=== PATIENT | female | born 1990 | race Caucasian/White ===

== ENCOUNTER 2019-07-16 15:53 | Emergency (ER) | payer SELFPAY ==
[2019-07-16 15:54] VITALS: BP 149/78; PULSE 77; PULSE 95; RESP 17; TEMP 36.3; O2SAT 97; BMI 22.7
--- NOTE | 2019-07-16 16:13 | ED.DEP ---
ED Disposition - Plan for ED Patient: Instructions: Dental Pain Prescriptions: Naproxen [Naprosyn] 500 mg PO BID PRN #20 tablet Penicillin V Potassium 500 mg PO 4X/DAY #40 tablet Referrals: Care Physician,No Primary [Primary Care Provider] -
--- NOTE | 2019-07-16 16:16 | ED.VISSUMM ---
- ER Visit Summary Date of Service: 07/16/19 Chief Complaint: Toothache History of Present Illness: The patient is a 28 F presenting with left lower toothache. This has been ongoing for the past 2 days. She has tried ibuprofen, Motrin, Orajel at home. She has also tried her niece's amoxicillin. She does not currently have a dentist. She has had left lower jaw swelling. Denies other complaints. Physical Examination: Vitals are stable. Patient is afebrile. Alert no acute distress. HEENT exam widespread dental decay, left lower gum tenderness with no fluctuance. No sublingual edema Neck is supple. Lungs are clear and equal bilaterally. Heart is regular rate and rhythm. Extremities are unremarkable. Skin is warm and dry. Remainder of exam is unremarkable. Emergency Department Course and Treatment: She was given [place] x1. She was given prescription for Naprosyn and penicillin. Advised to follow-up with a dentist. She is given a dental referral list. Advised return to ED for worsening complaints. Disposition: Discharge home Impression: Odontalgia This note was generated with [employer] dictation software. It may contain incorrect words, spelling, and punctuation that were not noted in review of the chart prior to signing ED Disposition - Plan for ED Patient: Disposition: Home or Assisted Living Instructions: Dental Pain Prescriptions: Naproxen [Naprosyn] 500 mg PO BID PRN #20 tab Prescription Printed Penicillin V Potassium 500 mg PO 4X/DAY #40 tab Prescription Printed Referrals: Care Physician,No Primary [Primary Care Provider] -
[2019-07-16] MEDS: Penicillin Vk 250 MG Tablet 500 MG PO (16:23)
== END 2019-07-16 16:32 | disposition home or self-care (01) ==
LOC: ED 16:26
PROVIDERS: Emergency Provider Emergency Medicine
DX: K02.9 Dental caries, unspecified (principal); Z72.0 Tobacco use
CPT/HCPCS: 99283

== ENCOUNTER 2019-09-22 07:42 | Emergency (ER) | payer MEDICAID, SELFPAY ==
[2019-09-22 07:45] VITALS: BP 129/65; PULSE 117; RESP 16; TEMP 36.8; O2SAT 100; BMI 22.3
--- NOTE | 2019-09-22 08:10 | ED.DCSUM_ITS ---
- ER Visit Summary Date of Service: 09/22/19 Chief Complaint: Sore throat with nausea, vomiting and diarrhea. Subjective fever. History of Present Illness: The patient is a 29 F seen in past medical history. Patient states she is had 4 days of nausea, vomiting and diarrhea. She is also had a sore throat. But is able to swallow. Not much of a cough. Subjective fever but not documented. No dysuria. No abdominal pain. Physical Examination: Young female no acute distress vital signs are stable afebrile. H EENT exam TMs are normal. Face is unremarkable. Posterior pharynx minimal erythema. No exudate. Tonsils not specifically enlarged. She is not drooling and able to swallow. There is no stridor. Neck nontender. Trachea midline. No lymphadenopathy. No meningismus. Lungs clear to auscultation bilaterally. Heart tachycardic rate about 110 no murmur. Abdomen is soft and nontender. Normal bowel sounds. No peritoneal signs. Both right upper and right lower quadrants are unremarkable. No obstruction. No distention. Patient is moving all 4 extremities. No edema. Back nontender. Neurologically she is awake alert with no focal motor deficits. Test Results: None Emergency Department Course and Treatment: Patient be treated with p.o. Zofran for nausea. P.o. fluid challenge. Clinically this does not appear to be strep throat. She has no exudate. Tonsils not enlarged. There is only minimal erythema. And she has no lymphadenopathy. She will be treated as a viral syndrome. Treatment Plan: Zofran for nausea. Plenty of fluids and rest. Follow-up as needed. Disposition: Discharge Impression: Acute viral syndrome This note was generated with [employer] dictation software. It may contain incorrect words, spelling, and punctuation that were not noted in review of the chart prior to signing ED Disposition - Plan for ED Patient: Referrals: Care Physician,No Primary [Primary Care Provider] -
--- NOTE | 2019-09-22 08:13 | ED.DEP ---
ED Disposition - Plan for ED Patient: Disposition: Home or Assisted Living Instructions: ED Viral Syndrome Prescriptions: Ondansetron [Zofran Odt] 4 mg PO Q8H PRN PRN #7 tab PRN Reason: Nausea Prescription Printed Referrals: Abdias Anderson MD [NON-STAFF] - 3-5 Days if not improving Additional Instructions: Zofran as needed for nausea. Plenty of fluids and rest. Follow-up if not improving. Tylenol and Motrin for fever.
[2019-09-22] MEDS: Ondansetron ODT 4 MG Tablet PO (08:21)
== END 2019-09-22 08:58 | disposition home or self-care (01) ==
PROVIDERS: Emergency Provider Emergency Medicine
DX: B34.9 Viral infection, unspecified (principal); Z72.0 Tobacco use
CPT/HCPCS: 99283

== ENCOUNTER 2022-10-10 08:55 | Inpatient (IN) | payer MEDICAID, SELFPAY ==
--- NOTE | 2022-10-09 | FALS_PTH ---
PATIENT: QUOC VALLE LOC: [facility] U#:[id number] AGE/SX: 32/F ROOM: WP010 RE10/10/[address]: Dr. Samara Mariano MD : 1990 BED: 1 DIS: 10/14/2022 SPEC #: [id number] RECD: 10/09/22 13:44 STATUS: RADHA REQ #: [id number] ISAMAR: 10/09/22 00:[address]: Samara Mariano DEPT: SURGICAL PATHOLOGY RECD BY: Margarito Valle ENTERED: 10/12/22 11:33 SP TYPE: FALL TUBES OTHR DR: No Primary Care Phys Tissues: Fallopian tube Procedures: Surgery Specimen Level II Surgery Specimen Level IV HEADER OPERATION: Tubal ligation PRE-OP DIAGNOSIS: Sterilization TISSUE SUBMITTED: Fallopian tubes MICROSCOPIC DIAGNOSIS Right fallopian tube, salpingectomy: Focal decidual change. Complete cross-section. Left fallopian tube, salpingectomy: Complete cross-section of fallopian tube with no pathologic change. AM:aravind 10/13/2022 MICROSCOPIC DESCRIPTION Slides are reviewed. GROSS DESCRIPTION Received in fixative is one container labeled with the patient's name and designated bilateral fallopian tubes, suture on right. The specimen consists of two fallopian tubes with an average length of 7.5 cm and has an average diameter of 1.0 cm. Both fallopian tubes have normal fimbriated ends. No mass lesions are identified. Neurosurgical Nurse Practitioner sections are submitted in two cassettes as follows: 1 - right fallopian tube, 2 - left fallopian tube. / AM:aravind 10/12/2022 TC:5 CPT: 73131, 28281
[2022-10-10] VITALS (16 sets, daily range): BP systolic 118–148; BP diastolic 54–79; PULSE 60–77; RESP 13–20; TEMP 36.6–37.2; O2SAT 96–99; BMI 23.9
[2022-10-10] MEDS: Lactated Ringers 1,000 ML 999 ML IV (10:25)
[2022-10-10 11:03] LABS: Absolute Lymphocyte Count 1.93 X10^3/uL (0.83-4.51); Absolute Neutrophil Count 7.6 X10^3/uL (2.0-7.7); Basophil# 0.03 X10^3/uL; Basophil% 0.3 % (0-1); Eosinophil# 0.16 X10^3/uL; Eosinophils% 1.6 % (0-5); Hematocrit 32.6 % (37-47); Hemoglobin 10.7 g/dL (12.0-15.0); Lymphocyte # 1.93 X10^3/ul (0.83-4.51); Lymphocyte % 18.8 % (19-41); Mean Corp Hgb Conc 32.8 g/dL (32-36); Mean Corpuscular Hgb 27.9 pg (27.0-32.0); Mean Corpuscular Volume 85.1 fL (81-99); Mean Platelet Vol. 12.4 fl (6.2-12.0); Monocyte# 0.49 X10^3/uL; Monocyte% 4.8 % (0-10); NRBC Flagged by Analyzer 0 % (0-5); Neutrophil # 7.61 X10^3/uL (2.7-7.7); Platelet Count 205 K/mm3 (150-450); RBC Distribution Width CV 14.6 % (11.6-14.6); RBC Distribution Width SD 45.3 fl (35.1-43.9); Red Blood Count 3.83 M/mm3 (4.2-5.4); White Blood Count 10.3 K/mm3 (4.4-11.0)
[2022-10-10] MEDS: Acetaminophen 500 MG Tablet 1000 MG PO ×3 (11:10→23:19)
[2022-10-10 11:23] LABS: Mucous, Urine 0 SEEN /hpf (<or=2+); Red Blood Cells-Urine 0 SEEN /hpf (0-5)
--- NOTE | 2022-10-10 11:24 | PCM.HP.OB ---
[facility] - General General Date of Admission: 10/10/22 Date of Service: 10/10/22 Chief Complaint: c/s HPI Narrative QUOC MARCH, is a 32-year-old 5 para 1-2-1-3 who presents at 39 weeks gestation with EDC of 10/17/2022 with spotty care. History of narcotic abuse and addiction. Has been most recently using heroin. Has been absent from care but did come into the office yesterday. Agreed to come back today for delivery. Maternal Data Information Final MELLY: 10/17/22 Gestational age: 39 0/7 PFSH [facility] Medical History (Updated 10/10/22 @ 11:[address] Samara Mariano MD) Fibroids History of pre-term labor History of prior with IUGR Infertility hemorrhage Skin graft disorder Home Medications naproxen 500 mg tablet 500 mg PO BID PRN #20 tabs 07/16/19 [Rx Last Taken Unknown] penicillin V potassium 500 mg tablet 500 mg PO 4X/DAY #40 tabs 07/16/19 [Rx Last Taken Unknown] ondansetron 4 mg disintegrating tablet 4 mg PO Q8H PRN PRN Nausea #7 tabs 09/22/19 [Rx Last Taken Unknown] Allergy/AdvReac Type Severity Reaction Status Date / Time No Known Allergies Allergy Verified 09/22/19 07:45 Surgical History (Updated 10/10/22 @ 11:[address] Samara Mariano MD) Previous section Social History Smoking Status: Current every day smoker History Elective abortions Hx Para 3 Spontaneous abortions Hx # Term Pregnancies Ectopic pregnancies Hx # Pregnancies Multiple births # of living children ROS Constitutional Constitutional: Reports fatigue and malaise; Denies fever(s) Eyes Eyes: Denies change in vision ENT HEENT: Denies dizziness or headache(s) Cardiovascular Cardiovascular: Denies chest pain, dyspnea or lightheadedness Respiratory/Chest Respiratory/Chest: Denies cough or dyspnea Gastrointestinal Gastrointestinal: Denies change in bowel habits Genitourinary Genitourinary: Denies burning urination or genital lesions Integumentary Integumentary: Denies rash Neurologic Neurologic: Denies confusion, dizziness, headache(s), numbness or weakness Vital Signs Vital Signs Vital Signs: 10/10/22 09:06 10/10/22 09:06 Pulse Rate 69 Pulse Ox 98 Weight Weight: 59.421 kg Body Mass Index (BMI) 23.9 Physical Exam Const alert and no apparent distress General Appearance: cooperative HEENT normocephalic Resp normal respiratory effort Cardio regular rate GI soft to palpation GI Narrative: gravid, nontender, appropriate for gestational age Extremity no calf tenderness General Extremity: edema Psych activity/motor behavior normal Labs Labs Labs: Blood Type B POSITIVE Antibody Screen NEGATIVE Hct 32.6 % (37-47) L Hgb 10.7 g/dL (12.0-15.0) L Syphilis Total Ab Pending Rubella IgG Antibody Pending Hep Bs Antigen Pending HIV 1&2 Antibody Pending Rhogam given: No Assessment & Plan (1) 39 weeks gestation of : PLAN: Risk benefits and alternatives to repeat section were discussed with patient, questions were answered to her satisfaction she desires to proceed. Consent was signed. She is excepting of blood products if indicated. She desires permanent sterilization. She understands permanent, irreversible risk of failure and regret and other options. We will proceed with bilateral salpingectomy unless scar tissue or anatomy prohibits this and then we will proceed with tubal sterilization in another manner. Patient is in agreement with this plan. Repeat STI testing today. Repeat gonorrhea chlamydia and trichomonas in the office yesterday were negative. management services technician will be consulted. Pain will be managed postoperatively with Subutex. (2) Previous delivery affecting : (3) Opioid abuse with opioid-induced disorder: (4) Request for sterilization:
[2022-10-10] MEDS: Lactated Ringers 1,000 ML 150 ML IV (11:29)
[2022-10-10] MEDS: Sodium Citrate/Citric Acid 30 ML UDC PO (11:30)
[2022-10-10 11:35] LABS: Color, Urine Yellow (Yellow); Glucose, Dipstick Normal (Normal); Ketone-Dipstick Negative (Negative); Leukocyte Esterase-Dipstick 500 /ul (Negative); Nitrite-Dipstick Negative (Negative); Occult Blood-Urine 25 /ul (Negative); Protein-Dipstick 15 mg/dl (Negative); Rubella IgG Reactive (Nonreactive); Urine Bilirubin Dipstick Negative (Negative); Urine Clarity Cloudy (Clear); Urine Urobilinogen 1 mg/dl (Normal)
[2022-10-10] MEDS: Cefazolin 2 GM in 0.9% Normal Saline 100 ML IV (11:42)
[2022-10-10 11:43] LABS: Prothrombin Time (Protime)PT. 13.2 SECONDS (11.7-14.9)
[2022-10-10 11:47] LABS: Squamous Epithelial Cells - UA 10-25 SEEN /hpf (5-10); White Blood Cells 10-25 SEEN /hpf (0-5)
[2022-10-10 11:48] LABS: Bacteria 1+ /hpf (None Seen)
[2022-10-10 11:57] LABS: Amphetamine Urine VISTA NEGATIVE (<1000 ng/mL); Barbiturate Urine VISTA NEGATIVE (< 200 ng/mL); Benzodiazepine Urine VISTA NEGATIVE (< 200 ng/mL); Cocaine Urine VISTA POSITIVE (< 300 ng/mL); Ecstacy Urine VISTA NEGATIVE (< 500 ng/mL); HIV - WCH Non-Reactive (Nonreactive); Hepatitis B Surface Antigen Non-Reactive (Nonreactive); Hepatitis C Antibody Non-Reactive (Nonreactive); Methadone Urine VISTA NEGATIVE (< 300 ng/mL); PCP Urine VISTA NEGATIVE (< 25 ng/mL); Syphilis Antibodies Non-reactive; THC Urine VISTA NEGATIVE (< 50 ng/mL); Vista UDS pH Range 6
[2022-10-10 12:28] LABS: Rubella IgG Reactive (Nonreactive)
[2022-10-10] MEDS: Oxytocin 15 Units/NS 250ml 15 UNITS/250 ML IV.SOLN 83 UNITS IV (12:45)
--- NOTE | 2022-10-10 12:50 | OP.PCM_ITS ---
Maternal Data Information Final MELLY: 10/17/22 Gestational age: 39 0/7 Details Operative Information Date of Procedure: 10/10/22 Pre-Operative Diagnosis: 39 weeks, previous c/s, sterilization request Post-Operative Diagnosis: same Indications for : Repeat Elective and Desires elective sterilization Classification: Scheduled Procedure Type: bilateral salpingectomy senior manufacturing supervisor #1: Tammie Oneill Type of Anesthesia: Spinal Anesthesiologist: Greg Lynn Special Medications: none Antibiotic Given: Ancef 2 grams IV x1 Drain: Malone to straight drain Estimated Blood Loss: 700 Fluids Replaced: 1000 Procedure Start Time: 11:57 Procedure Stop Time: 12:24 Time of Delivery: 12:00 Findings Description of Procedure: The patient was taken to the operating room. She was prepped and draped in the dorsal supine position with a leftward tilt. A Pfannenstiel skin incision was made approximately 2 cm above the symphysis pubis and carried through to underlying layer fascia with the scalpel. The fascia was incised incised in the midline and extended laterally with the Leigh scissors. The fascia was dissected off the rectus muscles with blunt and sharp dissection. The rectus muscles were in the midline and the peritoneum was entered bluntly. The peritoneal incision was stretched and the bladder blade was placed. The uterine incision was made in a low transverse fashion with the scalpel and extended superiorly and inferiorly with blunt dissection. The amniotic membranes were ruptured bluntly and clear amniotic fluid returned. The 's head was brought to the incision in the flexed position and delivered without difficulty. The remainder of the infant was delivered with gentle traction and fundal pressure in the standard fashion. The mouth and nares were bulb suctioned. The cord was clamped and cut as the was stimulated. Cord clamping was delayed. The was handed off to the waiting nursing staff. The placenta was delivered with fundal massage and gentle traction in the standard fashion. The uterus was left in situ. The cervix was dilated with a ring forcep. The uterine incision was closed with #1 Vicryl in a running locked fashion. The incision was examined and was found to be hemostatic. The left fallopian tube was identified and followed out to the fimbriated end. The LigaSure device was used to clamp, seal and transect the tube from the cornual insertion. It was then used to clamp seal and transect the antimesenteric portion of broad ligament so that the entire tube was removed. The pedicle was intact. The same procedure was performed on the contralateral side and the pedicles were hemostatic. The uterine incision was reexamined and hemostasis was again confirmed. The rectus muscles were examined and any bleeding was Bovie cauterized. The parietal peritoneum and rectus muscles were closed en bloc with an 0 Vicryl running suture. The surgical teams outer gloves were then changed. The rectus fascia was examined and any bleeding was Bovie cauterized and the rectus fascia was closed with 1 Vicryl suture in a running standard fashion. The subcutaneous tissue was examining and any bleeding was Bovie cauterized. The subcutaneous tissue was reapproximated with 3-0 Vicryl suture. The skin was closed in a subcuticular fashion with 3-0 Monocryl suture. I performed the entire procedure with assistance. All sponge, lap, and needle counts were correct. The patient was taken to her room for recovery in a stable condition. Patient had a lot of pain during the procedure. She was very intolerant of any pain. She admitted to use narcotics this morning. I discussed with the patient after the surgery options. Offered to treat her with nonnarcotic medications and once withdrawal symptoms started start her on buprenorphine. Patient declined and desires start oxycodone now for pain control because she states she just cannot tolerate the pain for the next 12 hours. I reviewed with her if she leaves the unit her IV will be removed. Presentation: Positive for Vertex Amniotic Membrane Rupture Type: Artificial Amniotic Fluid Description: Clear Placental Delivery Description: Expressed Placenta Disposition: [facility] Specimen(s) Sent to Pathology: Bilateral fallopian tubes Cord Vessel Description: 3 Vessels Cord Entanglement: None A Gender: Male (1 minute): 8 (5 minute): 9 Delayed Cord Clamping: Yes Complications Complications: none
[2022-10-10] MEDS: Ketorolac 30 MG/ML Syringe IV ×2 (13:49→20:22)
[2022-10-10] MEDS: oxyCODONE 5 MG Tablet PO ×3 (13:50→23:19)
--- NOTE | 2022-10-10 14:23 | NURSING ---
pt states that she is use to doing a gram of fentanyl a day and that oxycodone will not help for pain; pt not allowing me to check her fundus manually- however pt is thin so her fundus can be seen upon visual examination and is at the umbilicus
[2022-10-10] MEDS: hydrOXYzine 10 MG Tablet PO (14:49)
[2022-10-10] MEDS: Lactated Ringers 1,000 ML 100 ML IV (15:47)
[2022-10-10] MEDS: HYDROmorphone 1 MG/ML Syringe 2 MG IV ×3 (15:48→22:10)
--- NOTE | 2022-10-10 20:10 | NURSING ---
Pt remains painful and unable to lift bottom off bed, refusing to ambulate at bedside at this time. RN plan to try to control pain. Pt has history of drug use and recent drug use and states this pain medication is not helping.
--- NOTE | 2022-10-11 01:13 | NURSING ---
Pt called out to RN requesting PRN Dilaudid to be given at this time for pain 7-8/10 in abdomen. RN gave pt heating pad and tried other interventions prior to administration of IV Dilaudid. RN closely monitoring pt oxygen and respirations after each administration. Educated pt on pain control and medications being administered to pt.
[2022-10-11] MEDS: Lactated Ringers 1,000 ML 100 ML IV (01:17)
[2022-10-11] MEDS: HYDROmorphone 1 MG/ML Syringe 2 MG IV ×3 (01:17→09:54)
[2022-10-11 01:23] VITALS: PULSE 67; RESP 18; O2SAT 97
[2022-10-11] MEDS: Ketorolac 30 MG/ML Syringe IV ×2 (02:30→08:27)
[2022-10-11 03:52] VITALS: BP 132/56; PULSE 66; RESP 16; TEMP 37.1; O2SAT 97
[2022-10-11] MEDS: oxyCODONE 5 MG Tablet PO ×5 (04:00→21:19)
--- NOTE | 2022-10-11 04:30 | NURSING ---
Encouraged pt to ambulate at bedside, pt continues to be painful and rates pain 6-8/10 overnight with administration of pain medications. Pt desires to stay in bed at this time.
[2022-10-11] MEDS: Acetaminophen 500 MG Tablet 1000 MG PO ×3 (05:44→18:23)
--- NOTE | 2022-10-11 05:57 | NURSING ---
Unable to draw morning labs from rt IJ, pt requesting IV Dilaudid pain medication prior to drawing morning labs.
--- NOTE | 2022-10-11 07:31 | NURSING ---
Pt refused AM labs, oncoming RN aware.
--- NOTE | 2022-10-11 09:55 | PN.OBGYN_ITS ---
Subjective Subjective Patient complains of pain. Denies any symptoms of withdrawal. States she usually gets sweaty and diarrhea. No nausea or vomiting. Average lochia. Denies headache or visual changes. Objective Data Objective Data Vital Signs: Vital Signs Temp Pulse Resp BP Pulse Ox O2 Del Method 98.7 F 66 16 132/56 H 97 Room Air 10/11/22 03:52 10/11/22 03:52 10/11/22 03:52 10/11/22 03:52 10/11/22 03:52 10/11/22 03:52 Oxygen Delivery Method Room Air Weight: 59.421 kg Body Mass Index (BMI) 23.9 Intake & Output: Intake and Output for Last 24 Hours 10/09/22 10/10/22 10/11/22 23:59 23:59 23:59 Intake Total 3037.5 / 3037.5 1200 / 1200 Output Total 1650 / 1650 1450 / 1450 Balance 1387.5 / 1387.5 -250 / -250 Lab / Micro Data Result Diagrams: 10/10/22 10:25 Labs: Laboratory Results - last 24 hr 10/10/22 10:25: Urine Opiates Screen NEGATIVE, Urine Methadone Screen NEGATIVE, Ur Barbiturates Screen NEGATIVE, Ur Phencyclidine Scrn NEGATIVE, Ur Amphetamines Screen NEGATIVE, MDMA (Ecstasy) Screen NEGATIVE, U Benzodiazepines Scrn NEGATIVE, Urine Cocaine Screen POSITIVE H, U Cannabinoids Screen NEGATIVE, Ur Drug Screen Comment 10/10/22 10:25: WBC 10.3, RBC 3.83 L, Hgb 10.7 L, Hct 32.6 L, MCV 85.1, MCH 27.9, MCHC 32.8, RDW Std Deviation 45.3 H, RDW Coeff of [place] 14.6, Plt Count 205, MPV 12.4 H, Immature Gran % (Auto) 0.500, Neut % (Auto) 74.0 H, Lymph % (Auto) 18.8 L, [place] % (Auto) 4.8, Eos % (Auto) 1.6, Baso % (Auto) 0.3, Absolute Neuts (auto) 7.6, Absolute Lymphs (auto) 1.93, Nucleated RBC % 0 10/10/22 10:25: Urine Color Yellow, Urine Clarity Cloudy, Urine pH 7.0, Ur Specific [place] 1.010, Urine Protein 15 H, Urine Glucose (UA) Normal, Urine Ketones Negative, Urine Occult Blood 25 H, Urine Nitrite Negative, Urine Bilirubin Negative, Urine Urobilinogen 1 H, Ur Leukocyte Esterase 500 H, Urine RBC 0 SEEN, Urine WBC 10-25 SEEN, Ur Squamous Epith Cells 10-25 SEEN, Urine Bacteria 1+, Urine Mucus 0 SEEN 10/10/22 10:25: Blood Type B POSITIVE, Antibody Screen NEGATIVE 10/10/22 10:25: Syphilis Total Ab Non-reactive, Hep Bs Antigen Non-Reactive, Hepatitis C Antibody Non-Reactive, HIV 1&2 Antibody Non-Reactive, Rubella IgG Antibody Reactive 10/10/22 10:25: Rubella IgG Antibody Reactive 10/10/22 11:25: PT 13.2, INR 1.0, APTT 28.0 Physical Exam Const alert Constitutional Narrative: Appears uncomfortable, moaning slightly because she states she is in pain. Holding her abdomen. GI GI Narrative: soft, moderate distention, fundus firm, appropriately tender. Abdominal bandage clean dry and intact Assessment & Plan (1) Opioid abuse with opioid-induced disorder: PLAN: Discussed with the patient plan for DC IV. Discussed with her this means no further IV narcotics. Will increase her p.o. oxycodone. Patient requesting Vistaril for anxiety. I did order this and encouraged her to ask for it regularly. I will increase the dosage to 25 mg. We will have social services specialist talk with patient tomorrow. We will help arrange a plan for treatment after she is discharged. From a postop standpoint she is doing well. Morning CBC was canceled because patient declines peripheral attempt at blood drawl and they were unable to draw it off her current IV. is in the special care nursery and doing well. Patient was on her way to visit the today. During our discussion patient was much less dramatic about her pain. I discussed with her postop pain management expectations. (2) delivery delivered:
[2022-10-11] MEDS: Senna/Docusate Sodium 1 Tablet PO (12:54)
[2022-10-11 13:00] VITALS: BP 126/69; PULSE 68; RESP 18; TEMP 37.1
[2022-10-11] MEDS: hydrOXYzine PAM 25 MG Capsule PO ×2 (13:06→21:16)
[2022-10-11] MEDS: Naproxen 500 MG Tablet PO ×2 (14:02→22:07)
[2022-10-11 17:00] VITALS: BP 120/63; PULSE 76; RESP 18; TEMP 37.2
[2022-10-11 19:55] VITALS: BP 121/64; PULSE 84; RESP 18; TEMP 37.1; O2SAT 98
[2022-10-12] MEDS: Acetaminophen 500 MG Tablet 1000 MG PO ×4 (00:28→18:01)
[2022-10-12] MEDS: oxyCODONE 5 MG Tablet PO ×5 (01:27→20:51)
[2022-10-12 01:28] VITALS: BP 128/68; PULSE 78; RESP 18; TEMP 36.9; O2SAT 98
[2022-10-12] MEDS: Naproxen 500 MG Tablet PO ×3 (06:15→21:54)
--- NOTE | 2022-10-12 08:06 | PCM.PROGNOTE ---
Subjective Subjective patient seen at bedside, doing well. Patient reports good pain control. lochia mild. pt reports no signs of w/drawl. anxiety well controlled with Vistaril and pain well controlled with regular oxycodone PO Objective Data Objective Data Vital Signs: Vital Signs Temp Pulse Resp BP Pulse Ox O2 Del Method 98.4 F 78 18 128/68 H 98 Room Air 10/12/22 01:28 10/12/22 01:28 10/12/22 01:28 10/12/22 01:28 10/12/22 01:28 10/12/22 01:28 Oxygen Delivery Method Room Air Weight: 59.421 kg Body Mass Index (BMI) 23.9 Intake & Output: Intake and Output for Last 24 Hours 10/10/22 10/11/22 10/12/22 23:59 23:59 23:59 Intake Total 3037.5 / 3037.5 2080 / 2080 Output Total 1650 / 1650 2100 / 2100 Balance 1387.5 / 1387.5 -20 / -20 Lab / Micro Data Result Diagrams: 10/10/22 10:25 Physical Exam Const alert and oriented x3 General Appearance: cooperative HEENT normocephalic Neck General: normal visual inspection GI soft to palpation and non-distended GI Narrative: Fundus firm Extremity normal to inspection and no calf tenderness Skin no rashes or lesions noted Neuro oriented x3 and CN's II-XII intact bilaterally Psych mental status grossly normal Assessment & Plan Assessment/Plan (1) delivery delivered: (2) Opioid abuse with opioid-induced disorder: PLAN: Plan POD#2 , Doing well Routine care pain mgmt monitor VS ambulation SW to see patient today will need to contact project management it specialist with plan of care - will plan for dc tomorrow- ? inpatient rehab for opioid use- when asked again today pt states she is ready for help continue with PO oxycodone at this time
[2022-10-12] MEDS: Senna/Docusate Sodium 1 Tablet PO (10:25)
[2022-10-12] MEDS: hydrOXYzine PAM 25 MG Capsule PO ×2 (10:28→18:00)
[2022-10-12 10:30] VITALS: BP 138/62; PULSE 82; RESP 16; TEMP 36.8
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
[2022-10-12 16:54] VITALS: BP 133/66; PULSE 83; RESP 16; TEMP 36.3
[2022-10-12 19:28] VITALS: BP 137/66; PULSE 92; RESP 15; TEMP 36.8; O2SAT 99
[2022-10-13] MEDS: Acetaminophen 500 MG Tablet 1000 MG PO ×4 (00:06→17:59)
[2022-10-13] MEDS: hydrOXYzine PAM 25 MG Capsule PO ×2 (00:56→12:20)
[2022-10-13] MEDS: oxyCODONE 5 MG Tablet PO ×2 (00:56→08:08)
[2022-10-13 00:59] VITALS: BP 119/70; PULSE 78; RESP 16; TEMP 36.7; O2SAT 97
[2022-10-13] MEDS: Naproxen 500 MG Tablet PO ×3 (06:12→22:52)
[2022-10-13] MEDS: Senna/Docusate Sodium 1 Tablet PO (08:08)
[2022-10-13 08:14] VITALS: BP 130/64; PULSE 78; RESP 16; TEMP 37.1; O2SAT 96
--- NOTE | 2022-10-13 08:57 | PCM.PN.OB ---
Subjective Subjective Patient is doing OK Objective Data Objective Data Vital Signs: Vital Signs Temp Pulse Resp BP Pulse Ox O2 Del Method 98.8 F 78 16 130/64 H 96 Room Air 10/13/22 08:14 10/13/22 08:14 10/13/22 08:14 10/13/22 08:14 10/13/22 08:14 10/13/22 08:14 Oxygen Delivery Method Room Air Weight: 131 lb Body Mass Index (BMI) 23.9 Intake & Output: Intake and Output for Last 24 Hours 10/11/22 10/12/22 10/13/22 23:59 23:59 23:59 Intake Total 2079 / 2079 Output Total 2099 / 2099 Balance -20 / -20 Lab / Micro Data Result Diagrams: 10/10/22 10:25 Physical Exam Const alert, oriented x3 and no apparent distress HEENT normocephalic GI soft to palpation, non-tender and non-distended GI Narrative: fundus firm, mid & below umbilicus Incision - bandage c/d/i Extremity normal to inspection and no calf tenderness Assessment & Plan (1) delivery delivered: COMMENT: POD#3 PLAN: Routine care Possible discharge later today (2) Opioid abuse with opioid-induced disorder: PLAN: Social work to see patient again today to finalize treatment plan
[2022-10-13 13:21] VITALS: BP 133/59; PULSE 86; RESP 16; TEMP 36.7; O2SAT 98
[2022-10-13] MEDS: oxyCODONE 5 MG Tablet 10 MG PO ×2 (14:11→19:45)
[2022-10-13 14:16] LABS: Pathology Specimen OB SEE PATHOLOGY REPORT
[2022-10-13 14:16] LABS: Pathology Specimen OB SEE PATHOLOGY REPORT
[2022-10-13 19:50] VITALS: BP 143/53; PULSE 84; RESP 18; TEMP 36.4; O2SAT 97
[2022-10-14] MEDS: oxyCODONE 5 MG Tablet 10 MG PO ×2 (00:22→10:03)
[2022-10-14] MEDS: Acetaminophen 500 MG Tablet 1000 MG PO ×3 (00:27→12:33)
[2022-10-14] MEDS: hydrOXYzine PAM 25 MG Capsule PO (00:28)
[2022-10-14 03:50] VITALS: BP 139/70; PULSE 76; RESP 18; TEMP 37.3; O2SAT 98
[2022-10-14] MEDS: Naproxen 500 MG Tablet PO ×2 (06:36→14:30)
--- NOTE | 2022-10-14 08:21 | PCM.PN.OB ---
Subjective Subjective patient seen at bedside. Continues to take Oxyir 10 mg PO every 4 hours for pain. Ambulating and voiding without difficulty. Denies any headache, vision changes, dizziness, SOB, or CP. Pursuing admission to [facility]- detox/rehabilitation center here in [place]. SW involved in plan of care. Baby in [facility]. Objective Data Objective Data Vital Signs: Vital Signs Temp Pulse Resp BP Pulse Ox O2 Del Method 99.1 F 76 18 139/70 H 98 Room Air 10/14/22 03:50 10/14/22 03:50 10/14/22 03:50 10/14/22 03:50 10/14/22 03:50 10/14/22 03:50 Oxygen Delivery Method Room Air Weight: 131 lb Body Mass Index (BMI) 23.9 Lab / Micro Data Result Diagrams: 10/10/22 10:25 Physical Exam Narrative Dressing is dry and intact Const alert and no apparent distress General Appearance: cooperative and comfortable Exam Limitations: no limitations HEENT normocephalic Eyes General Eye: normal appearance of both eyes Neck full ROM General: normal visual inspection Chest Chest: symmetrical chest wall rise Resp normal respiratory effort and normal air movement Effort and Inspection: symmetric chest movement Auscultation: clear to auscultation bilaterally Cardio regular rate and regular rhythm GI normal to inspection, nondistended, normoactive bowel sounds Back/Spine normal ROM Extremity full ROM and no calf tenderness General Extremity: normal exam except as noted Skin no rashes or lesions noted Neuro CN's II-XII intact bilaterally Psych mental status grossly normal Assessment & Plan (1) delivery delivered: COMMENT: POD#3 (2) Request for sterilization: (3) Opioid abuse with opioid-induced disorder: (4) Previous delivery affecting : PLAN: Plan POD 4 Repeat C/S with BTL Pain control Continue ambulation Voluntary admission to [facility] Desire discharge today- will discuss with Dr. Hargrove regarding pain medications for discharge/plan of care
[2022-10-14] MEDS: Senna/Docusate Sodium 1 Tablet PO (10:03)
[2022-10-14 10:04] VITALS: BP 145/70; PULSE 91; RESP 16; TEMP 37.2; O2SAT 98
--- NOTE | 2022-10-14 10:29 | CASEMGMT ---
Addendum entered and electronically signed by Macey Garcia 10/14/22 10:36: Clarification: Late entry for intervention occurring on 10.13.22 between [id number]. -Britt. Original Note: Social Work Labor and Delivery Unit Called [facility] ([phone]) and spoke with Kimberley Rosenbaum in the intake department. Referral given due to infant exposure to substances in utero, reporting maternal drug screens done prenatally and at time of delivery, and infant drug screen at time of delivery. Brief maternal and histories provided. Updated that mother of baby (MOB) mother Jacqueline reports willingness to take into Jacqueline's home. Reported MOB has reported desire to seek treatment, though nothing has been arranged yet. Updated that was transferred into the [facility] special care nursery due to hypoglycemia and concerns related to withdrawal. Reviewed nursing notes. Additional concern is that reported father of baby also has active substance use issues. Did report that necessary supplies for the infant are reportedly in place at the 's maternal grandmother's home. [facility] children [facility] will be opening the case. This teletypewriter operator requested to be called when it is known that children services will be coming to the hospital. Presented to MOB's room, to touch base. MOB not in room. Left note at bedside that this teletypewriter operator would be back on 10/14/2022. This teletypewriter operator leaving for the day and came across [facility] in the hallway. Let MOB know this teletypewriter operator would be back on 10/14/2022. MOB reports has made the decision to go to [facility] in [place] for detox. Reports called this program and left a message. Plan: Social work will continue to follow and assist. Children services has been involved and will be following up with MOB and infant. Help me grow referral to be made. -Macey Garcia, PARALEGAL-S, ARTIST AND REPERTOIRE MANAGER *This note was generated with Publicateation software. It may contain incorrect words, spelling, and punctuation that were not noted in review of the chart prior to signing*
--- NOTE | 2022-10-14 10:37 | CASEMGMT ---
Social Work Labor and Delivery Unit Received phone call from praveena Garayer [facility] children services ([phone]). Avinash reports to be the assigned worker for this family. Provided Avinash an update. Avinash plans to come to the hospital this morning to discuss plans for the infant. Met with mother of baby (MOB) in MOB's room. Also present was the reported father of baby (FOB) Lalo Maciel. Introduced self to Lalo. Updated that children services will be coming today to discuss plans. MOB reports continued intention to go to [facility] in [place] and plans to use MOB's mother's phone to follow-up with this program about entering detox. MOB reports [facility] will connect MOB to counseling at somewhere like [facility] or [facility]. MOB reports [facility] will make sure MOB is taking care of. MOB with good eye contact, appropriate affect, alert and engaged in conversation. This bond underwriter explored how MOB is doing, as later in the day on 10/13/2022 this bond underwriter updated by nursing that MOB was upset due to house resource officer being called on the evening of the regarding concern that the FOB may have been intoxicated. MOB and FOB report there was a payroll officer that talk to the FOB, due to FOB stumbling out in the hallway. MOB reports the FOB has ADD and is touching a lot of things and may have just stumbled. MOB and FOB deny that FOB was inebriated in any way. FOB reports a history of alcohol use issues and has been alcohol free for several months now. MOB also reports her father would never bring an intoxicated person to the hospital. Emotional support and supportive listening provided. This bond underwriter did indicate that MOB could call the patient advocate if felt necessary. MOB declined stating that did not want to do that and is feeling better today. FOB appearing alert during conversation, good eye contact and calm. This bond underwriter had noted that MOB's mother Jacqueline was in the special care nursery holding the baby, and this bond underwriter let MOB know that would be going to update best to children services coming, so that Jacqueline can be present at MOB's bedside. This bond underwriter spoke with Jacqueline in the special care nursery and updated. Jacqueline continues to report intent and desire to take to Jacqueline's home and care for . Jacqueline actually shared that ANALI's sister also has addiction issues and that Jacqueline is caring for ANALI's nieces/nephews as well. Jacqueline reports that if the infant is allowed into the home there will be a total of 7 of Jacqueline's grandchildren that Jacqueline is caring for and raising. This bond underwriter encouraged Jacqueline to self-care as well. This bond underwriter also reinforced the importance of not allowing people who are in active substance use and impaired around the children. Jacqueline reports has no issue kicking anyone out of the home when there is concern about intoxication. Jacqueline reports the children are the priority. Plan: Children services to see MOB this date and discussed plan for . Anticipate MOB to discharge today. ANALI declines this bond underwriter's assistance in making referrals for any detox programs, with ANALI reporting she has initiated this herself. This bond underwriter will return to MOB however and provide some written resource list and information on depression. -BAM Slater, GEAR LAPPING MACHINE OPERATOR *This note was generated with [employer]Tree dictation software. It may contain incorrect words, spelling, and punctuation that were not noted in review of the chart prior to signing*
--- NOTE | 2022-10-14 14:04 | CASEMGMT ---
Social Work Labor and Delivery Unit Yan De Los Santos and Meseret Travis from [facility] ([facility]) to unit to meet with mother of baby (MOB) and family. [facility] spoke with MOB, father of baby (FOB) Lalo Maciel, and MOB's mother Jacqueline Valle. Safety plan signed for MOB's mother to care for infant and MOB's older daughter Bobbi. Infant does remain in the SCN at this time. Spoke with RN Yanely, coin purse assembler Kim, and Ana Mora CNM regarding plan with [facility]. Also updated Ana about MOB's stated intention to go to detox at [facility] in [facility]. Met with MOB in room. FOB also present. Inquired if MOB made any progress on getting into detox. MOB reports since Jacqueline left unable to follow up, as Jacqueline has phone. This clinical writer assisted MOB in calling long distance from MOB's room. MOB left voicemail to call MOB back at Jacqueline's number. This clinical writer also assisted MOB complete an online pre-registration referral form for [facility], leaving MOB's email to respond to MOB directly. MOB expressed thanks. Let MOB know that patients do not always get prescriptions for narcotics at discharge, so something to think about when discharged. MOB reports to understand and understand that may not have any narcotic to go home with. MOB expressed thanks for support. This clinical writer checked in with the FOB. FOB reports to be doing okay and denies any needs or to need any type of support for self. PLAN: MOB will discharge to self today. MOB has initiated contact with [facility] for detox, and declines referral to stay at [facility] for detox. [facility] will be working with MOB in the community. -ANDREA Slater, VAN
[2022-10-14 14:26] VITALS: BP 132/73; PULSE 75; RESP 14; TEMP 36.7; O2SAT 98
--- NOTE | 2022-10-14 15:20 | PCM.DC.SUM ---
Providers Date of Admission: 10/10/22 Primary Care Physician: No Primary Care Phys Reason For Visit: Diagnosis Discharge Diagnosis (1) delivery delivered: Status: Acute Code(s): O82 - Encounter for delivery without indication (2) Previous delivery affecting : Status: Acute Code(s): O34.219 - Maternal care for unspecified type scar from previous delivery (3) Opioid abuse with opioid-induced disorder: Status: Acute Code(s): F11.19 - Opioid abuse with unspecified opioid-induced disorder Plan POD 4 D/C home with recommendation for admission to medical detox program- patient declines Rx sent to [facility] for Tylenol, Naproxen and Vistaril Patient to follow up next week in office Dr. Morton notified and involved with plan of care Medications at Discharge Home Medications naproxen 500 mg tablet 500 mg PO BID PRN #20 tabs 07/16/19 acetaminophen 500 mg tablet 1,000 mg PO Q6H #30 tabs 10/14/22 hydroxyzine pamoate 25 mg capsule 25 mg PO 4X/DAY PRN PRN anxiety or agitation #30 caps 10/14/22 naproxen 500 mg tablet 500 mg PO Q8H #30 tabs 10/14/22 Hospital Course Operations section Summary of Care Provided Hospital Course: Patient here for elective repeat section. Hospital course was uneventful. Physical Exam Narrative Dressing is dry and intact Const alert and no apparent distress General Appearance: cooperative and comfortable Exam Limitations: no limitations HEENT normocephalic Eyes General Eye: normal appearance of both eyes Neck full ROM General: normal visual inspection Chest Chest: symmetrical chest wall rise Resp normal respiratory effort and normal air movement Effort and Inspection: symmetric chest movement Auscultation: clear to auscultation bilaterally Cardio regular rate and regular rhythm GI normal to inspection, nondistended, normoactive bowel sounds Back/Spine normal ROM Extremity full ROM and no calf tenderness General Extremity: normal exam except as noted Skin no rashes or lesions noted Neuro CN's II-XII intact bilaterally Psych mental status grossly normal Weight / BMI Weight Weight: 131 lb Body Mass Index (BMI) 23.9 ABG / Lab / Microbiology Data Result Diagrams: 10/10/22 10:25 D/C Instructions Discharge Diet: No restrictions May resume sexual activity in: 4-6 weeks Weight Bearing Status: Weight bearing as tolerated Call your doctor if you observe: Inability to urinate, Using more than 1 pad per hour, Shortness of breath, Dizziness, Swelling in the ankles, Chest pain, Calf discomfort and Uncontrolled pain When: Within 10 days Meaningful Use Info Meaningful Use Diagnoses (Choose all that apply): None applicable Discharge Plan Admission Admit Date/Time: 10/10/22 08:55 Primary Reason for Your Visit: Section Attending Provider: Samara Mariano Primary Care Provider: Care PhysicianZahra Primary Discharge Orders/Prescriptions Prescriptions: New hydroxyzine pamoate 25 mg Capsule 25 mg PO 4X/DAY PRN PRN (Reason: anxiety or agitation) Qty: 30 0RF naproxen 500 mg Tablet 500 mg PO Q8H Qty: 30 0RF acetaminophen 500 mg Tablet 1,000 mg PO Q6H Qty: 30 0RF Discontinued penicillin V potassium 500 MG tablet 500 mg PO 4X/DAY Qty: 40 0RF ondansetron 4 MG tablet 4 mg PO Q8H PRN PRN (Reason: Nausea) Qty: 7 0RF No Action naproxen 500 MG tablet 500 mg PO BID PRN Qty: 20 0RF Referrals / Follow Up: Care Physician,No Primary [Primary Care Provider] - Disposition Disposition (needs filled in before D/C Order can be placed): Home, Self Care
--- NOTE | 2022-10-14 16:15 | PN_ITS ---
Progress Note Discussed plan of care with health and social care teacher concaver. Patient was offered direct admit to medical detox here in hospital and then placement at residential center at [facility]. Patient declines this offer and is planning on trying to get treatment at [facility]. Patient has called this facility and may go there later or tomorrow. She is requesting discharge home at this time. Discussed due to patient's history and not being transferred to inpatient detox/treatment, I did not feel comfortable prescribing Oxyir for pain control. Patient voiced und erstanding and requested that Rx for Naproxen, Tylenol and Vistaril be sent. She stated she is managing her pain well with Naproxen and Tylenol. Assessment & Plan Assessment/Plan (1) delivery delivered: (2) Previous delivery affecting : (3) Opioid abuse with opioid-induced disorder: PLAN: Plan POD 4 D/C home with recommendation for admission to medical detox program- patient declines Rx sent to [facility] for Tylenol, Naproxen and Vistaril Patient to follow up next week in office Dr. Morton notified and involved with plan of care
--- NOTE | 2022-10-14 16:38 | DCINST_ITS ---
Discharge Instructions Diet Discharge Diet: No restrictions Activity Discharge Activity: Return to Normal Activity, May Shower and May Take a Tub Bath May resume sexual activity in: 4-6 weeks Weight Bearing Status: Weight bearing as tolerated Dressing / Incision Call your doctor if you observe: Inability to urinate, Using more than 1 pad per hour, Shortness of breath, Dizziness, Swelling in the ankles, Chest pain, Calf discomfort and Uncontrolled pain Follow Up Care When: Within 10 days Test Results: Test results from this visit will be discussed in further detail at your follow- up appointment, if applicable. Discharge Plan Admission Admit Date/Time: 10/10/22 08:55 Primary Reason for Your Visit: Labor and Delivery Attending Provider: Samara Mariano Primary Care Provider: Care PhysicianZahra Primary Discharge Orders/Prescriptions Prescriptions: New hydroxyzine pamoate 25 mg Capsule 25 mg PO 4X/DAY PRN PRN (Reason: anxiety or agitation) Qty: 30 0RF naproxen 500 mg Tablet 500 mg PO Q8H Qty: 30 0RF acetaminophen 500 mg Tablet 1,000 mg PO Q6H Qty: 30 0RF Discontinued penicillin V potassium 500 MG tablet 500 mg PO 4X/DAY Qty: 40 0RF ondansetron 4 MG tablet 4 mg PO Q8H PRN PRN (Reason: Nausea) Qty: 7 0RF No Action naproxen 500 MG tablet 500 mg PO BID PRN Qty: 20 0RF Referrals / Follow Up: Care Physician,No Primary [Primary Care Provider] - Disposition Disposition (needs filled in before D/C Order can be placed): Home, Self Care
--- NOTE | 2022-10-14 18:11 | CASEMGMT ---
Social Work Labor and Delivery Provided mother of baby (MOB) with list of resources for [facility], Shaken Baby Prevention, Safe Sleeping, and mood and anxiety disorders. This administrative underwriter's card provided at MOB's request to have contact information. MOB reports [facility] called back but playing phone tag. MOB reports plan to call [facility] tomorrow. MOB denies any other needs or concerns at this time. PLAN: MOB discharging to self. Resources for home going provided. [facility] following. [facility] referral to be made. Baby in [facility] and social work will follow from the [facility]. -ANDREA Slater, VAN
== END 2022-10-14 18:00 | disposition home or self-care (01) | DRG 539 ==
PROVIDERS: Anesthesiology; Admitting Provider Obstetrics & Gynecology; Referring Provider Obstetrics & Gynecology; Visit Provider Obstetrics & Gynecology
DX: O34.219 Maternal care for unspecified type scar from previous cesarean delivery (principal); O99.324 Drug use complicating childbirth; F11.10 Opioid abuse, uncomplicated; F17.200 Nicotine dependence, unspecified, uncomplicated; O99.334 Smoking (tobacco) complicating childbirth; Z30.2 Encounter for sterilization; Z37.0 Single live birth; Z3A.39 39 weeks gestation of pregnancy; Z87.59 Personal history of other complications of pregnancy, childbirth and the puerperium
CPT/HCPCS: 59050; 80307; 81001; 85025; 85610; 85730; 86703; 86762; 86780; 86803; 86850; 86900; 86901; 87340; 88302; 88305; 99221; J7120; G0378